=== PATIENT | female | born 1985 | race Asian ===

== ENCOUNTER 2023-12-12 07:01 | Outpatient (CLI) | payer OTHER, SELFPAY ==
--- NOTE | 2023-12-12 07:15 | CRLHL7_ITS ---
For Patients: As a result of the Century Cures Act, medical imaging exams and procedure reports are released immediately into your electronic medical record. You may view this report before your referring provider. If you have questions, please contact your health care provider. INDICATION: Dating and viability COMPARISON: None TECHNIQUE: Mattson-scale and color Doppler of the gravid uterus and fetus from a transabdominal approach. Mattson-scale and color Doppler of the gravid uterus and fetus from a transvaginal approach. Transvaginal ultrasound was necessary for better visualization of the uterine contents. FINDINGS: Provided gestational age: 15 weeks 6 days Single intrauterine gestation in a vertex presentation. heart rate is 152 bpm. The heart, stomach, kidneys, and bladder appear normal. No pleural effusion, pericardial effusion, ascites, or skin edema. External genitalia have a male phenotype. Biparietal diameter: 3.6 cm Head circumference: 13.4 cm Abdominal circumference: 11.5 cm Femur length: 2.2 cm HC/AC: 1.17, normal The composite ultrasound estimated gestational age is 17 weeks 0 days. The estimated weight is 175 grams, or 6 ounces. This corresponds to the 97 percentile for gestational age. Gestational age by biometry is 17 weeks 0 days, plus or minus 1 week 1 day. Amniotic fluid volume is normal. The single deepest vertical pocket is 4 centimeters. The placenta is anterior and inferior. The placenta completely covers the cervical os. Very ill-defined margin between the placenta and the maternal bladder. Patient has a history of 2 prior sections. MATERNAL No pelvic free fluid. Cervical length is 0.8 cm. Mild funneling at the internal os. Measured transvaginally IMPRESSION: 1. Anterior inferior placental implantation, overlying the prior section site. Placenta previa completely covering the internal os. Ill-defined margins between the placenta, myometrium, and adjacent maternal urinary bladder raise the possibility of placenta accreta spectrum abnormalities. 2. Maternal cervix measures 0.8 centimeters in length and there is funneling at the internal os. 3. Single intrauterine gestation. Estimated weight is at the 97th percentile for provided gestational age of 15 weeks 6 days. Gestational age by biometry is 17 weeks 0 days. Dictated by Lynn Turner MD @ 12/12/2023 8:04:31 AM (Electronically Signed)
== END 2023-12-12 07:02 | disposition home or self-care (01) ==
LOC: US 07:02
PROVIDERS: Visit Provider Physician Assistant
DX: O09.522 Supervision of elderly multigravida, second trimester (principal); O16.2 Unspecified maternal hypertension, second trimester; Z3A.17 17 weeks gestation of pregnancy
CPT/HCPCS: 76815; 76817

== ENCOUNTER 2023-12-12 08:13 | Outpatient (CLI) | payer OTHER, SELFPAY | END 2023-12-12 08:14 | disposition home or self-care (01) | PROVIDERS: Visit Provider Advanced Practice Midwife | DX: O09.522 Supervision of elderly multigravida, second trimester (principal); O44.12 Complete placenta previa with hemorrhage, second trimester; Z3A.17 17 weeks gestation of pregnancy | CPT/HCPCS: 82565; 82570; 84156; 84450; 84460; 84520; 86592; 86703; 86704; 86706; 86762; 86787; 86803; 86850; 86900; 86901; 87086; 87340 ==